=== PATIENT | female | born 1950 | race Caucasian/White ===

== ENCOUNTER 2016-11-09 15:04 | Emergency (ER) | payer BC, OTHER ==
[~2016-11-09] VITALS: Ht 170.2 cm; Wt 78.2 kg
[~2016-11-09 15:04] MED LIST: COLACE50 MG PO; FLAGYL500 MG PO; HYDROCHLOROTHIA25 MG PO; HYDROCHLOROTHIA50 MG PO; LAB; LEVOTHYROXINE100 MCG PO; MACROBID100 MG PO; NEXIUM40 MG PO; NORCO 5/3251 TABLET PO; PERCOCET 5/31 TABLET PO; PRAVACHOL40 MG PO; ZOFRAN4 MG PO
[2016-11-09 16:27] LABS: EOSINOPHIL (%) 1.3 % (0-5); EOSINOPHIL COUNT 0.1 K/uL (0-0.3); HEMATOCRIT 43.6 % (36.0-46.0); IMMATURE GRANULOCYTE (%) 0.4 % (0.0-0.7); INSTRUMENT ABS NEUTROPHIL CT 4.3 K/uL; LYMPHOCYTE COUNT 1.8 K/uL (1.0-2.8); MCH 30.7 PG (29.0-34.0); MCHC 34.2 G/DL (30.0-36.0); MCV 89.9 FL (83-99); MEAN PLAT.VOLUME 9.7 uM^3 (9.5-12.4); MONOCYTE (%) 6.7 % (3-12); MONOCYTE COUNT 0.5 K/uL (0-0.8); NEUTROPHIL (%) 64.1 % (45-76); NEUTROPHIL COUNT 4.3 K/uL (1.8-6.4); PLATELET COUNT 204 K/uL (156-360); RBC DIS.WIDTH-CV 12.6 % (11.8-14.6); RBC DIS.WIDTH-SD 42.1 % (39-53); RED BLOOD COUNT 4.85 M/uL (3.80-5.20); WHITE BLOOD COUNT 6.7 K/uL (4.1-10.2)
[2016-11-09 16:36] LABS: CHLORIDE 103 mEq/L (99-109); POTASSIUM 3.3 mEq/L (3.7-5.4); SODIUM 144 mEq/L (136-147)
[2016-11-09 16:38] LABS: GLUCOSE 102 mg/dL (70-99)
[2016-11-09 16:39] LABS: ANION GAP 13 MEQ/L (2-14)
[2016-11-09 16:42] LABS: GFR ESTIMATE (CALCULATED) > 59 mL/min/
[2016-11-09 16:43] LABS: UREA NITROGEN (BUN) 16 mg/dL (9-23)
[2016-11-09 16:48] LABS: TROP-I INTERPRETATION NEGATIVE; TROPONIN-I < 0.01 ng/mL (0.0-0.30)
[2016-11-09 20:48] LABS: TOTAL BILIRUBIN 0.8 mg/dL (0.0-1.0)
[2016-11-09 20:49] LABS: ALKALINE PHOSPHATASE 64 IU/L (3-129)
[2016-11-09 20:52] LABS: DIRECT BILIRUBIN 0.3 mg/dL (0.0-0.3)
[2016-11-09 20:54] LABS: TROP-I INTERPRETATION NEGATIVE; TROPONIN-I < 0.01 ng/mL (0.0-0.30)
[2016-11-09] MEDS ORDERED: ZITHROMAX250 MG PO (21:31)
[2016-11-09 22:10] VITALS: BP 139/89
== END 2016-11-09 22:17 | disposition home or self-care (01) ==
LOC: EME 15:04
PROVIDERS: Physician Assistant
DX: J18.0 Bronchopneumonia, unspecified organism (principal); R07.89 Other chest pain; E87.6 Hypokalemia; J45.909 Unspecified asthma, uncomplicated; I10 Essential (primary) hypertension; K21.9 Gastro-esophageal reflux disease without esophagitis
CPT/HCPCS: 71020; 71275; 80048; 80076; 84443; 84484; 85025; 93005; 99281; 99285; J2270; J7030

== ENCOUNTER → 2017-09-28 | Outpatient (CLI) | payer OTHER, BC ==
[~2017-09-28] MED LIST changes: +ZITHROMAX250 MG PO
== END | disposition home or self-care (01) ==
LOC: NUC 07:45
DX: K22.4 Dyskinesia of esophagus (principal); R13.10 Dysphagia, unspecified; K44.9 Diaphragmatic hernia without obstruction or gangrene; R93.3 Abnormal findings on diagnostic imaging of other parts of digestive tract
CPT/HCPCS: 78264; A9541